=== PATIENT | female | born 1965 | race Caucasian/White ===

== ENCOUNTER → 2016-09-26 | Outpatient (REF) | payer BC ==
[2016-09-26 14:25] LABS: FOLATE 3.7 NG/ML (>5.4); VITAMIN B12 LEVEL 589 PG/ML (247-911)
[2016-09-26 21:49] LABS: T UPTAKE 35 % (30-39); THYROXINE (T4) 7.9 UG/DL (4.5-12.0)
[2016-09-29 08:06] LABS: VITAMIN E LEVEL 8.1 mg/L (5.3-16.8)
== END ==
LOC: M LABNEURO 11:06
PROVIDERS: ATTEND Psychiatry & Neurology Neurology
DX: M54.5 Low back pain (principal); G62.9 Polyneuropathy, unspecified; R56.9 Unspecified convulsions

== ENCOUNTER → 2017-08-11 | Outpatient (CLI) | payer BC | LOC: M WUC 13:02 | DX: M79.672 Pain in left foot (principal) | CPT/HCPCS: 73620 ==